=== PATIENT | female | born 1965 | race Caucasian/White ===

== ENCOUNTER 2016-10-27 10:07 | Day surgery (SDC) | payer OTHER ==
[2016-10-27] MEDS ORDERED: fentaNYL 100 MCG/2 ML INJ IVP ONE (10:12)
[2016-10-27] MEDS ORDERED: NS 500 ML IV ONE (10:12)
[2016-10-27] MEDS ORDERED: PROPOFOL 200 MG/20 ML VIAL IVP ONE (10:12)
[2016-10-27] MEDS ORDERED: MIDAZOLAM 2 MG/2 ML VIAL IVP ONE (10:12)
--- NOTE | 2016-10-27 10:41 | CPEKG ---
Heart Rate: 102 RR Interval: 588 QRSD Interval: 108 QT Interval: 384 QTC Interval: 501 QRS [place]: -136 T Wave [place]: 79 EKG Severity - ABNORMAL ECG - EKG Impression: ATRIAL FLUTTER, A-RATE 241 EKG Impression: INCOMPLETE RBBB AND LAFB EKG Impression: NONSPECIFIC T ABNORMALITIES, LATERAL LEADS EKG Impression: PROLONGED QT INTERVAL Electronically Signed By: Amadou Kelsey 27-Oct-2016 13:21:47
[2016-10-27 11:12] LABS: INR 1.19 (0.83-1.16); PROTIME(PATIENT) 15.1 SEC (12.0-15.0)
[2016-10-27 11:13] LABS: APTT 29.2 SEC (23.0-38.0)
[2016-10-27 11:14] LABS: ANION GAP 12 mEq/L (8-16); CALCIUM 9.3 mg/dL (8.5-10.4); CARBON DIOXIDE 26 mEq/l (22-31); CHLORIDE 105 mEq/L (97-110); CREATININE 0.6 mg/dL (0.6-1.0); GLOMERULAR FILTRATION RATE > 60; GLUCOSE 92 mg/dL (70-100); POTASSIUM 3.8 mEq/L (3.5-5.2); SODIUM 143 mEq/L (134-144)
[2016-10-27] MEDS ORDERED: ATROPINE SULFATE 1 MG/10 ML SYR ONE (11:20)
--- NOTE | 2016-10-27 11:37 | CPEKG ---
Heart Rate: 85 RR Interval: 706 P-R Interval: 232 QRSD Interval: 106 QT Interval: 408 QTC Interval: 486 P [place]: 53 QRS [place]: -102 T Wave [place]: 66 EKG Severity - ABNORMAL ECG - EKG Impression: SINUS RHYTHM EKG Impression: VENTRICULAR BIGEMINY EKG Impression: FIRST DEGREE AV BLOCK EKG Impression: PROBABLE LEFT ATRIAL ABNORMALITY EKG Impression: INCOMPLETE RBBB AND LAFB EKG Impression: BORDERLINE PROLONGED QT INTERVAL Electronically Signed By: Amadou Kelsey 27-Oct-2016 13:21:27
--- NOTE | 2016-10-29 11:16 | EPPROC ---
Electrophysiology Procedure Note: Procedure: CV Indication: AF and Aflutter Procedure: Pt sedated by anesthesia staff. Once sedated, pt was CV using 200J of direct current. Pt successfully converted to SR. Conclusion: Successful CV
== END 2016-10-27 13:00 | disposition home or self-care (01) ==
LOC: FCATH 10:07
PROVIDERS: ATTEND Internal Medicine Cardiovascular Disease
PROC: 5A2204Z Restoration of Cardiac Rhythm, Single (ICD-10-PCS; principal; 2016-10-27)
DX: I48.91 Unspecified atrial fibrillation (principal); I48.92 Unspecified atrial flutter; R53.83 Other fatigue; R94.31 Abnormal electrocardiogram [ECG] [EKG]; Q87.40 Marfan syndrome, unspecified; F41.9 Anxiety disorder, unspecified; I47.1 Supraventricular tachycardia; J45.909 Unspecified asthma, uncomplicated; Z79.01 Long term (current) use of anticoagulants
CPT/HCPCS: J0461

== ENCOUNTER 2016-12-14 10:17 | Emergency (ER) | payer OTHER ==
[2016-12-14] MEDS ORDERED: NS 1,000 ML IV ONE (10:54)
[2016-12-14 11:00] LABS: % IMMATURE GRANULYOCYTES 0.3 % (0.0-1.1); ABSOLUTE IMMATURE GRANULOCYTES 0.02 10^3/uL (0.00-0.10); ADD DIFF? NO; ADD MORPH? NO; ADD SCAN? NO; ATYPICAL LYMPHOCYTE FLAG 20 (0-99); FRAGMENT RBC FLAG 0 (0-99); HEMATOCRIT 43.1 % (38.0-47.0); HEMOGLOBIN 14.7 g/dL (12.6-16.3); LEFT SHIFT FLG 0 (0-99); LIPEMIA HEMOLYSIS FLAG 90 (0-99); MEAN CELL HEMOGLOBIN CONCENTR. 34.1 g/dL (32.4-36.7); MEAN CELL VOLUME 96.9 fL (81.5-99.8); MEAN PLATELET VOLUME 8.6 fL (8.7-11.7); PLATELET CLUMPS FLAG 0 (0-99); PLATELET COUNT 223 10^3/uL (150-400); RED BLOOD CELL COUNT 4.45 10^6/uL (4.18-5.33); RED CELL DISTRIBUTION WIDTH 12.5 % (11.5-15.2)
[2016-12-14 11:11] LABS: ANION GAP 11 mEq/L (8-16); CALCIUM 9.3 mg/dL (8.5-10.4); CARBON DIOXIDE 25 mEq/l (22-31); CHLORIDE 104 mEq/L (97-110); CREATININE 0.5 mg/dL (0.6-1.0); GLOMERULAR FILTRATION RATE > 60; GLUCOSE 87 mg/dL (70-100); SODIUM 140 mEq/L (134-144)
--- NOTE | 2016-12-14 11:20 | EDPHY ---
H & P Smoking Status: Never smoked Time Seen by Provider: 12/14/16 10:53 HPI/ROS: CHIEF COMPLAINT: Vaginal bleeding HISTORY OF PRESENT ILLNESS: 51-year-old female presents to the emergency department complaining of heavy vaginal bleeding for 1 week. The patient denies any known trauma or injury. She states that she had a Mirena IUD placed 1 year ago and has not had any problems. Over last 1 week she has been saturating super tampons within 1 hour. She states today she passed a very large clot and came to the emergency department for evaluation. She has some mild abdominal cramping. She denies chest pain or difficulty breathing. She has some mild low back discomfort as well. The patient has been feeling dizzy and lightheaded. She did not have a syncopal episode. She does not know if the lightheadedness is related to arrhythmia. She recently had a Holter monitor placed last week. She does not know the results of this yet. Patient has a history of atrial fibrillation and is on Xarelto. She called her OBGYN and was advised to come to the emergency department for evaluation. REVIEW OF SYSTEMS: Constitutional: No fever, no chills. Eyes: No double or blurry vision. ENT: No sore throat. Respiratory: No cough, no shortness of breath. Cardiac: No chest pain. Gastrointestinal: Mild abdominal cramping. No vomiting or diarrhea. Genitourinary: Vaginal bleeding. No dysuria. Musculoskeletal: No neck or back pain. Skin: No rashes. Neurological: No headache. (Maida Garibay) Past Medical/Surgical History: Mirena IUD, sleep apnea, Marfan syndrome, valve repair x2, CABG, scoliosis with surgery, atrial fibrillation, asthma, Del Cid rods (Maida Garibay) Social History: (Maida Garibay) Physical Exam: General Appearance: Alert, no distress. 36.6, 114/65, 96% on room air, heart rate 66 Eyes: Pupils equal and round. Extraocular motions are all intact. ENT: Mouth: Mucous membranes moist. Respiratory: No wheezing, rhonchi, or rales, lungs are clear to auscultation. Cardiovascular: Regular rate and rhythm. Gastrointestinal: Abdomen is soft and nontender, no masses, no rebound or guarding, bowel sounds normal. Genitourinary: Deferred Neurological: Alert and oriented x 3, cranial nerves II through XII grossly intact Skin: Warm and dry, no rashes. Musculoskeletal: Nontender to palpate along the cervical, thoracic or lumbar spine. Neck is supple. Extremities: Full range of motion and no peripheral edema. Psychiatric: Patient is oriented X 3, there is no agitation. (Maida Garibay) Constitutional: Initial Vital Signs Temperature (C) 36.6 C 12/14/16 10:19 Heart Rate 66 12/14/16 10:19 Respiratory Rate 14 12/14/16 10:19 Blood Pressure 114/65 12/14/16 10:19 O2 Sat (%) 96 12/14/16 10:19 O2 Delivery Mode Room Air Allergies/Adverse Reactions: clindamycin HCl [From Cleocin] Allergy (Severe, Verified 06/04/16 21:19) Rash codeine Allergy (Intermediate, Verified 06/04/16 21:19) Other-Enter Comments amoxicillin Allergy (Verified 06/04/16 21:19) clindamycin palmitate HCl [From Cleocin] Allergy (Verified 06/04/16 21:19) clindamycin phosphate [From Cleocin] Allergy (Verified 06/04/16 21:19) Home Medications: Medication Instructions Recorded Alprazolam [Xanax 1mg] 1 mg PO QID 03/23/11 Aspirin [Aspirin 81mg] 81 mg PO DAILY 03/23/11 DULoxetine [Cymbalta] 60 mg PO DAILY 03/23/11 ADVAIR HFA 230-21 MCG INHALER 02/29/16 Acapella 02/29/16 Acetaminophen 02/29/16 Albuterol 02/29/16 Fexofenadine HCl 02/29/16 Gabapentin 02/29/16 Metoprolol Tartrate 25 mg PO BID 02/29/16 Naproxen 500 mg PO PRN 02/29/16 Potassium 10 meq PO PRN 02/29/16 Proair Hfa Icu (RX) 108 mcg IH PRN 02/29/16 Xarelto 20 mg PO DAILY 02/29/16 Doxycycline Hyclate 100 mg PO BID #10 tab 06/04/16 medroxyPROGESTERone [Provera 10 mg 10 mg PO DAILY #10 tab 12/14/16 (*)] Medical Decision Making - Diagnostics EKG Interpretation: EKG: Complete interpretation has been separately recorded in the [employer] archive. Summary impression: Sinus rhythm, rate 58 (Valdez Agosto) Imaging: KUB x-ray reveals IUD the outside of the uterus. CT imaging of the abdomen and pelvis with without contrast was reviewed by myself and discussed with Dr. Chris Sam an IUD was found to be in the vaginal canal. No evidence of perforation. (Maida Garibay) ED Course/Re-evaluation: 51-year-old female presents to the emergency department with heavy vaginal bleeding. Pelvic ultrasound reveals no IUD present in the uterus and possible polyp that will need follow-up in 6-8 weeks. CBC was within normal limits. Specifically hematocrit was 43%. I spoke with the patient's OBGYN, Dr. Bethany Cortez in [place] at [phone] and she recommended imaging to establish with IUD may have been displaced. She also recommended starting the patient on Provera 10 mg daily for 10 days. She will see her in follow-up. KUB x-ray reveals IUD present and lying horizontally in the pelvis. It is not clear where this is. CT scan of the pelvis without contrast has been ordered to confirm placement. The case was discussed with Dr. Olu Agosto, secondary supervising physician, who did not directly evaluate the patient but agrees with treatment and plan. CT imaging of the abdomen pelvis without contrast reveals IUD likely in vaginal canal. Pelvic examination was performed which revealed normal cervical os was closed. Small amount of blood noted in the vaginal canal. The IUD was wedged just to the right of the cervix and this was easily removed with ring forceps. (Maida Garibay) Differential Diagnosis: Including but not limited to dysfunctional uterine bleeding, anemia, uterine fibroid, carcinoma, displaced IUD (Maida Garibay) Other Provider: PHYSICIAN DOCUMENTATION: The patient was evaluated and managed by the Physician Finance Business Partner. My co- signature indicates that I have reviewed this chart and I agree with the findings and plan of care as documented. I am the secondary supervising physician. (Valdez Agosto) - Data Points Laboratory Results: Laboratory Results 12/14/16 10:54 12/14/16 10:50 12/14/16 12/14/16 12/14/16 10:54 10:50 10:50 WBC 6.76 10^3/uL 10^3/uL (3.80-9.50) RBC 4.45 10^6/uL 10^6/uL (4.18-5.33) Hgb 14.7 g/dL g/dL (12.6-16.3) Hct 43.1 % % (38.0-47.0) MCV 96.9 fL fL (81.5-99.8) MCH 33.0 pg pg (27.9-34.1) MCHC 34.1 g/dL g/dL (32.4-36.7) RDW 12.5 % % (11.5-15.2) Plt Count 223 10^3/uL 10^3/uL (150-400) MPV 8.6 fL L fL (8.7-11.7) Neut % (Auto) 64.0 % % (39.3-74.2) Lymph % (Auto) 23.7 % % (15.0-45.0) [place] % (Auto) 8.4 % % (4.5-13.0) Eos % (Auto) 3.0 % % (0.6-7.6) Baso % (Auto) 0.6 % % (0.3-1.7) Nucleat RBC Rel Count 0.0 % % (0.0-0.2) Absolute Neuts (auto) 4.33 10^3/uL 10^3/uL (1.70-6.50) Absolute Lymphs (auto) 1.60 10^3/uL 10^3/uL (1.00-3.00) Absolute Monos (auto) 0.57 10^3/uL 10^3/uL (0.30-0.80) Absolute Eos (auto) 0.20 10^3/uL 10^3/uL (0.03-0.40) Absolute Basos (auto) 0.04 10^3/uL 10^3/uL (0.02-0.10) Absolute Nucleated RBC 0.00 10^3/uL 10^3/uL (0-0.01) Immature Gran % 0.3 % % (0.0-1.1) Immature Gran # 0.02 10^3/uL 10^3/uL (0.00-0.10) Sodium 140 mEq/L mEq/L (134-144) Potassium 4.0 mEq/L mEq/L (3.5-5.2) Chloride 104 mEq/L mEq/L (97-110) Carbon Dioxide 25 mEq/l mEq/l (22-31) Anion Gap 11 mEq/L mEq/L (8-16) BUN 15 mg/dL mg/dL (7-23) Creatinine 0.5 mg/dL L mg/dL (0.6-1.0) Estimated GFR > 60 Glucose 87 mg/dL mg/dL (70-100) Calcium 9.3 mg/dL mg/dL (8.5-10.4) Beta HCG, Qual NEGATIVE Medications Given: Discontinued Medications Sodium Chloride (Ns) 1,000 mls @ 0 mls/hr IV ONCE ONE PRN Reason: Wide Open Stop: 12/14/16 10:55 Last Admin: 12/14/16 11:15 Dose: 1,000 mls Departure - Departure Disposition: Home, Routine, Self-Care Clinical Impression: Vaginal bleeding Malpositioned IUD Qualifiers: Encounter type: initial encounter Qualified Code(s): T83.32XA - Displacement of intrauterine contraceptive device, initial encounter Condition: Good Instructions: Dysfunctional Uterine Bleeding (ED) Additional Instructions: Your IUD has been removed. Provera 10 mg daily for 10 days. You will have recurring vaginal bleeding after stopping this medication. Follow up with your OBGYN next week to recheck. Referrals: Aidan Blakely MD [Primary Care Provider] - As per Instructions Prescriptions: medroxyPROGESTERone [Provera 10 mg (*)] 10 mg PO DAILY #10 tab
--- NOTE | 2016-12-14 12:38 | CPEKG ---
Heart Rate: 58 RR Interval: 1034 P-R Interval: 232 QRSD Interval: 104 QT Interval: 460 QTC Interval: 452 P [place]: 33 QRS [place]: -97 T Wave [place]: 56 EKG Severity - ABNORMAL ECG - EKG Impression: SINUS RHYTHM EKG Impression: FIRST DEGREE AV BLOCK EKG Impression: INCOMPLETE RBBB AND LAFB EKG Impression: RIGHT VENTRICULAR HYPERTROPHY Electronically Signed By: Valdez Agosto 14-Dec-2016 14:31:48
[2016-12-14 15:38] VITALS: BP 110/89; PULSE 86; RESP 16; TEMP 98.4; O2SAT 94
== END 2016-12-14 15:38 | disposition home or self-care (01) ==
DX: N93.9 Abnormal uterine and vaginal bleeding, unspecified (principal); T83.32XA Displacement of intrauterine contraceptive device, initial encounter; J45.909 Unspecified asthma, uncomplicated; Z79.82 Long term (current) use of aspirin; Z79.01 Long term (current) use of anticoagulants; Z95.1 Presence of aortocoronary bypass graft; Y76.2 Prosthetic and other implants, materials and accessory obstetric and gynecological devices associated with adverse incidents